=== PATIENT | male | born 1990 | race Caucasian/White ===

== ENCOUNTER 2019-05-23 20:34 | Emergency (ER) | payer MEDICAID ==
[2019-05-23 22:49] LABS: URINE BLOOD (Dip) POC Trace-intact (NEGATIVE); URINE GLUCOSE (Dip) POC Negative (NEGATIVE); URINE KETONES (Dip) POC Negative (NEGATIVE); URINE LEUKOCYTE EST (Dip) POC Negative (NEGATIVE); URINE NITRITE (Dip) POC Negative (NEGATIVE); URINE TOTAL PROTEIN POC Trace (NEGATIVE)
[2019-05-23 22:49] LABS: URINE PH (Dip) POC 6.5 (5.0-8.5)
== END 2019-05-24 00:26 | disposition home or self-care (01) ==
LOC: FTE 05-24 00:26
DX: N50.811 Right testicular pain (principal); N50.812 Left testicular pain
CPT/HCPCS: 76536; 76870; 81003; 99284-25